=== PATIENT | female | born 1985 | race Caucasian/White ===

== ENCOUNTER 2020-05-02 20:33 | Emergency (ER) | payer SELFPAY ==
[~2020-05-02] VITALS: Ht 162.6 cm; Wt 81.6 kg
[2020-05-02 21:22] VITALS: BP 113/62
--- NOTE | 2020-05-02 21:30 | NUR ---
PT WAITING WITH [facility]
--- NOTE | 2020-05-02 21:41 | NUR ---
34 Y/O FEMALE BIBA BLS C/O SINCE AM RIGHT SIDED ABD PAIN 07/25; +N/V; - DIARRHEA; CHEST PRESSURE UPON INSPIRATION/EXPIRATION; PER PT CANNOT TAKE NARCOTICS;BS 189; TEMP 102.9; SKIN IS PINK/WARM/DRY; AAOX4 WITH EVEN AND STEADY GAIT; HR EVEN AND REGULAR; PT DENIES ANY SOB OR COUGH AT THIS TIME; VSS; PATIENT POSITIONED FOR COMFORT; PMH:CHOLITIS /DM NKA
--- NOTE | 2020-05-02 21:55 | NUR ---
BIBA TO ER BED 9
--- NOTE | 2020-05-02 21:55 | NUR ---
Saleem mitchell in [facility] - 05/03/20 at 0239 by [facility] TO ER BED
[2020-05-02] MEDS ORDERED: ACETAMINOPHEN EXTRA STRENGTH 500 MG TAB PO ONE (22:25)
[2020-05-02] MEDS ORDERED: IBUPROFEN 600 MG TAB PO ONE (22:25)
--- NOTE | 2020-05-02 22:31 | NUR ---
LAB AT BEDSIDE.
[2020-05-02 22:51] LABS: HEMATOCRIT 41.5 % (36-48); HEMOGLOBIN 13.7 g/dL (12.0-16.0); MEAN CORPUSCULAR HEMOGLOBIN 28 pg (27-31); MEAN CORPUSCULAR HGB CONC 33 g/dL (33-37); PLATELET COUNT (AUTO) 268 K/uL (140-450); RED BLOOD CELL COUNT(AUTO) 4.88 MIL/uL (4.20-5.40); RED CELL DISTRIBUTION WIDTH 13.2 % (11.6-13.7)
--- NOTE | 2020-05-02 22:52 | NUR ---
PT ABLE TO AMBUALTE TO RESTROOM WITH STEADY GAIT. PROVIDED UA AND SENT TO LAB.
[2020-05-02 22:58] LABS: APPEARANCE,URINE CLEAR (CLEAR); BILIRUBIN,URINE NEGATIVE (NEGATIVE); BLOOD, URINE TRACE-I (NEGATIVE); COLOR,URINE YELLOW (YELLOW); LEUKOCYTE ESTERASE ,URINE NEGATIVE (NEGATIVE); NITRITE, URINE NEGATIVE (NEGATIVE); UGLUCOSE NEGATIVE (NEGATIVE)
[2020-05-02 23:15] LABS: ALBUMIN 3.7 g/dL (3.4-5.0); ANION GAP 16.3 (8-16); CARBON DIOXIDE 27.5 mmol/L (21-32); POTASSIUM 3.8 mmol/L (3.5-5.1); TOTAL BILIRUBIN 0.4 mg/dL (0.0-1.0)
[2020-05-02 23:16] LABS: LYMPHOCYTES % (MANUAL) 8 % (20-46); MONOCYTES % (MANUAL) 2 % (5-12)
[2020-05-02 23:20] LABS: RBC,URINE 0-5 /HPF (0-5)
--- NOTE | 2020-05-02 23:56 | NUR ---
PT TAKEN TO CT VIA [facility].
--- NOTE | 2020-05-03 00:05 | NUR ---
pt returned from ct via [facility].
--- NOTE | 2020-05-03 00:45 | NUR ---
ERMD AT BEDSIDE. PT CONTINUES WITH 5/10 ABD PAIN. ERMD MADE AWARE AND GAVE NEW ORDER FOR TORADOL 30MG IM.
[2020-05-03] MEDS ORDERED: KETOROLAC 30 MG/ML VIAL IM ONE (00:55)
[2020-05-03] MEDS ORDERED: cephALEXin 500 MG CAP PO ONE (01:00)
--- NOTE | 2020-05-03 01:15 | NUR ---
PT BP: 95/56. ERMD MADE AWARE AND GAVE NEW ORDER FOR BOLUS 1L NS 0.9%. IV PLACED IN LAC 20G. PT AAO X4. RESPIRATIONS ARE EVEN AND UNLABORED. REMAINS ON CARIDAC MONTIOR.
[2020-05-03] MEDS ORDERED: NACL 0.9% 1,000 ML IV ONE (01:25)
--- NOTE | 2020-05-03 02:02 | NUR ---
BP: 106/60. PT DENIES PAIN AT THIS TIME. AAO X4. RESPIRATIONS ARE EVEN AND UNLABORED. SKIN IS WARM AND DRY TO TOUCH. VSS.
--- NOTE | 2020-05-03 02:15 | NUR ---
CALLED PT ERIKA @ [phone]. THEY STATED THEY WOULD GOLF MANAGER PT IN ER LOBBY.
--- NOTE | 2020-05-03 02:19 | NUR ---
IV removed, catheter intact and site benign. Applied folded 4x4 gauze and tape to stop bleeding.
[2020-05-03 02:20] VITALS: BP 106/60
--- NOTE | 2020-05-03 02:20 | NUR ---
Patient discharged with v/s stable. Written and verbal after care instructions given and explained. Patient alert, oriented and verbalized understanding of instructions. Ambulatory with steady gait. All questions addressed prior to discharge. ID band removed. Patient advised to follow up with PMD. Rx of NAPROSYN, CEPHALEXIN given. Patient educated on indication of medication including possible reaction and side effects. Opportunity to ask questions provided and answered.
--- NOTE | 2020-05-07 08:23 | NUR ---
LATE ENTRY- NORMAL SALINE 0.9% IV DISCONTINUED AT 0220.
== END 2020-05-03 02:20 | disposition home or self-care (01) ==
LOC: MED 20:33
DX: N12 Tubulo-interstitial nephritis, not specified as acute or chronic (principal); R10.31 Right lower quadrant pain; E11.9 Type 2 diabetes mellitus without complications; Z87.19 Personal history of other diseases of the digestive system
CPT/HCPCS: 36415; 74176; 80053; 81001; 84702; 85025; 87086; 96372; 99284; J1885; J7030